=== PATIENT | male | born 1985 | race Two or more races ===

== ENCOUNTER 2023-08-10 16:31 | Emergency (ER) | payer OTHER, SELFPAY ==
--- NOTE | ~2023-08-10 | XR_ITS ---
EXAMINATION: XR CERVICAL SPINE CLINICAL INFORMATION: Pain. Injury. COMPARISON: None available. TECHNIQUE: 3 views of the cervical spine were obtained. FINDINGS: There is curvature of the lower cervical and upper thoracic spine to the left. Bone alignment is otherwise normal. There is mild degenerative spondylosis and disc space narrowing at C5-C6. Prevertebral soft tissues are normal. XR/XR cervical spine 2V IMPRESSION: Mild scoliosis and degenerative changes. No fracture or dislocation.
--- NOTE | ~2023-08-10 | XR_ITS ---
EXAMINATION: XR SHOULDER, LEFT CLINICAL INFORMATION: Pain. Injury. COMPARISON: None available. TECHNIQUE: AP external rotation, Grashey, scapular Y, and axillary views of the left shoulder. FINDINGS: Bone alignment is normal. No fracture or dislocation. Mild degenerative changes at the acromioclavicular joint and superior glenohumeral joints. Soft tissue calcification adjacent to the acromion. XR/XR shoulder LT min 2V IMPRESSION: Mild degenerative changes. No fracture or dislocation.
[2023-08-10 17:21] VITALS: BP 156/98; PULSE 85; RESP 16; TEMP 37.2; O2SAT 97; BMI 32.3
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
[2023-08-10 20:10] VITALS: BP 156/78; PULSE 82; RESP 18; TEMP 36.8; O2SAT 98
[2023-08-10 21:33] VITALS: BP 148/90; PULSE 78; RESP 20; TEMP 36.9; O2SAT 97
[2023-08-10 21:39] VITALS: BP 148/70; PULSE 78; RESP 20; TEMP 36.9; O2SAT 97
== END 2023-08-10 21:40 | disposition home or self-care (01) ==
PROVIDERS: Emergency Provider Emergency Medicine
DX: S16.1XXA Strain of muscle, fascia and tendon at neck level, initial encounter (principal); M25.512 Pain in left shoulder; V89.2XXA Person injured in unspecified motor-vehicle accident, traffic, initial encounter; Y93.9 Activity, unspecified; Y92.89 Other specified places as the place of occurrence of the external cause; Y99.9 Unspecified external cause status
CPT/HCPCS: 72040; 73030; 99282; 99283